=== PATIENT | male | born 1955 | race Caucasian/White ===

== ENCOUNTER 2024-06-23 06:39 | Observation (INO) ==
[2024-06-23] MEDS ORDERED: Rocuronium 50 mg VIAL 10 mg/ml 5 ml VIAL (50 mg) ONE (06:54)
[2024-06-23] MEDS ORDERED: Midazolam 2 mg/2 ml VIAL 1 mg/ml 2 ml VIAL (2 mg) ONE (06:57)
[2024-06-23] MEDS ORDERED: fentaNYL 100 mcg/2 ml 50 MCG/ML VIAL ONE ×2 (06:58→08:06)
[2024-06-23 07:28] LABS: Rapid COVID-19 Molecular Undetected (Undetected)
[2024-06-23] MEDS ORDERED: Tranexamic Acid 1 GM/100ML BAG 2,000 MG/200 ML BAG IV ONE (07:39)
[2024-06-23] MEDS ORDERED: ceFAZolin 2 GM PREMIX 2 GM/50 ML BAG ONE (07:39)
[2024-06-23] MEDS ORDERED: Ondansetron 4 mg VIAL 2 MG/ML 2 ml VIAL IV PRN ×2 (07:42→12:07)
[2024-06-23] MEDS ORDERED: Naloxone 0.4 mg VIAL 0.4 mg/ml 1 ml VIAL IV PRN (07:42)
[2024-06-23] MEDS ORDERED: fentaNYL 100 mcg/2 ml 50 MCG/ML VIAL IV PRN (07:42)
[2024-06-23] MEDS ORDERED: NS 0.45% 1000 ml BAG 1,000 ML IV SCH (08:00)
[2024-06-23] MEDS ORDERED: ROPIVACAINE 5 MG/ML 30 ML BTL (0.5%) ONE (08:13)
[2024-06-23] MEDS: Buffered Lidocaine 1% SYRIN 1 ml INTRADERM ONE (08:22)
[2024-06-23] MEDS: Carbidopa/Levodop 25/100 MG TAB PO ONE (08:22)
[2024-06-23] MEDS: Lactated Ringers 1000 ml BAG 1,000 ML IV SCH ×2 (08:23→13:12)
[2024-06-23] MEDS: Scopolamine 1 mg/72hr PATCH TRANSDERM ONE (08:23)
[2024-06-23] MEDS ORDERED: HYDROmorphone 0.5 MG/0.5 ML SYRINGE ONE ×2 (09:52→10:40)
[2024-06-23] MEDS ORDERED: Dexamethasone IV 4 MG/ML VIAL 1 ml VIAL ONE (09:57)
[2024-06-23] MEDS ORDERED: Ondansetron 4 mg VIAL 2 MG/ML 2 ml VIAL ONE (09:57)
[2024-06-23] MEDS ORDERED: Magnesium Hydroxide LIQ 30 ML UDC PO PRN (12:07)
[2024-06-23] MEDS ORDERED: Morphine 2 MG/ML SYRINGE IV PRN (12:07)
[2024-06-23] MEDS ORDERED: Lactulose 30 ml UDC PO PRN (12:07)
[2024-06-23] MEDS ORDERED: Ondansetron ODT 4 mg TAB 4 MG TAB PO PRN (12:07)
[2024-06-23] MEDS ORDERED: Calcium Carb (TUMS) 500 mg CHEW TAB PO PRN (12:07)
[2024-06-23] MEDS: Acetaminophen IV 1 GM/100ML 1,000 MG/100 ML BAG IV ONE (14:31)
[2024-06-23] MEDS: ceFAZolin 2 GM PREMIX 2 GM/50 ML BAG IV SCH (17:37)
[2024-06-23] MEDS: Magnesium Hydroxide LIQ 30 ML UDC PO SCH (20:51)
[2024-06-23] MEDS: Carbidopa/Levodop CR 50/200 TAB.CR PO SCH (20:52)
[2024-06-23] MEDS: Carbidopa/Levodop 25/100 MG TAB PO SCH (20:52)
[2024-06-23] MEDS: Multivitamins/Minerals TAB PO SCH (20:52)
[2024-06-24 06:13] LABS: Hematocrit 34.3 % (38-53); Hemoglobin 11.8 g/dL (13.2-16.3); Mean Platelet Volume 9.3 fL (7.5-11.2); Platelet Count 178 10^3/uL (150-450)
[2024-06-24 07:23] LABS: Calcium 8.7 mg/dL (8.6-10.3); Creatinine, Serum 0.92 mg/dL (0.67-1.17); Potassium 4.1 mmol/L (3.5-5.0); eGFR CKD-EPI 91.7 (>60)
[2024-06-24] MEDS: Vitamin THERAPEUTIC TAB PO SCH (09:04)
[2024-06-24 13:38] VITALS: BP 122/65
== END 2024-06-24 16:33 | disposition home or self-care (01) ==
LOC: SSU 06:39 → OR 06:39
PROVIDERS: ADMIT Orthopaedic Surgery Adult Reconstructive Orthopaedic Surgery; ATTEND Orthopaedic Surgery Adult Reconstructive Orthopaedic Surgery